=== PATIENT | female | born 1940 | race Caucasian/White ===

== ENCOUNTER 2018-05-21 11:42 | Inpatient (IN) | payer MEDICARE, OTHER ==
[2018-05-21 12:27] LABS: ADD MAN DIFF? NO
[2018-05-21 12:36] LABS: HEMATOCRIT 36.5 % (37.0-47.0); LYMPHOCYTES # 1.1 10^3/ul (0.8-2.9); LYMPHOCYTES % 28.8 % (15.0-51.0); MEAN CORPUSCULAR HEMOGLOBIN 27.7 pg (29.0-33.0); MEAN CORPUSCULAR HGB CONC 32.9 g/dl (32.0-37.0); MEAN CORPUSCULAR VOLUME 84.3 fl (82.0-101.0); MEAN PLATELET VOLUME 10.8 fl (7.4-10.4); MONOCYTE # 0.4 10^3/ul (0.3-0.9); MONOCYTES % 9.2 % (0.0-11.0); NEUTROPHIL # 2.3 10^3/ul (1.6-7.5); NEUTROPHILS % 61.7 % (39.0-77.0); PLATELET COUNT 329 10^3/UL (140-415); RED BLOOD COUNT 4.33 10^6/ul (4.20-5.40); RED CELL DISTRIBUTION WIDTH 12.8 % (11.5-14.5)
[2018-05-21 12:36] LABS: WHITE BLOOD COUNT 3.8 10^3/ul (4.8-10.8)
[2018-05-21] MEDS: SOD CHLORIDE 0.9% 1,000 ML IV ×3 (12:48→17:35)
[2018-05-21] MEDS: CEFTRIAXONE 1 GM/50 ML (PMX) 50 ML IVPB (12:48)
[2018-05-21 12:49] LABS: POSITIVE DIFF @See below
[2018-05-21] MEDS: ALBUTEROL 0.083% (NEB) 2.5 MG/3 ML AMP INH (12:51)
[2018-05-21 12:58] LABS: ALANINE AMINOTRANSFERASE 23 IU/L (13-69); ALBUMIN 4.1 g/dl (3.3-4.9); ALKALINE PHOSPHATASE 52 IU/L (42-121); ANION GAP 21 (5-13); ASPARTATE AMINO TRANSFERASE 44 IU/L (15-46); BLOOD UREA NITROGEN 74 mg/dl (7-20); CALCIUM 10.1 mg/dl (8.4-10.2); CARBON DIOXIDE 23 mmol/L (21-31); CHLORIDE 96 mmol/L (97-110); CREATININE 3.53 mg/dl (0.44-1.00); GLUCOSE 232 mg/dl (70-220); SODIUM 140 mmol/L (135-144); TOTAL PROTEIN 7.5 g/dl (6.1-8.1)
[2018-05-21] MEDS: AZITHROMYCIN 500MG/NS (PMX) 250 ML IV (13:13)
[2018-05-21 13:50] LABS: ANISOCYTOSIS 2+ (0-0); BAND NEUTROPHILS #M 0.3 10^3/ul (0.0-0.6); BAND NEUTROPHILS % (M) 9 % (0-4); BURR CELLS 1+ (0-0); ERYTHROBLAST% (NRBC) (M) 1 % (0-0); GIANT THROMBO% (M) 1 % (0-0); LYMPHOCYTES #M 0.6 10^3/ul (0.8-2.9); LYMPHOCYTES % (M) 18 % (15-51); MICROCYTOSIS 2+ (0-0); MONOCYTE #M 0.5 10^3/ul (0.3-0.9); MONOCYTES % (M) 14 % (0-11); PLATELET ESTIMATE NORMAL; POIKILOCYTOSIS 1+ (0-0); POLYCHROMASIA 3+ (0-0); REACTIVE LYMPHOCYTES% (M) 1 % (0-0); SEG NEUT #M 2.2 10^3/ul (1.6-7.5); SEGMENTED NEUTROPHILS (M) % 58 % (39-77); SMUDGE%M 9 % (0-0); TEAR DROP CELLS 1+ (0-0)
[2018-05-21] MEDS: ONDANSETRON 4 MG INJ IV ×2 (14:17→21:39)
[2018-05-21] MEDS: HYDROmorphONE 1 MG/ML SYG IV (14:17)
[2018-05-21] MEDS ORDERED: ONDANSETRON 4 MG INJ IV (15:00)
[2018-05-21] MEDS ORDERED: ACETAMINOPHEN 325 MG TAB PO ×2 (15:00→17:30)
[2018-05-21] MEDS ORDERED: DOCUSATE SODIUM 100 MG CAP PO (17:30)
[2018-05-21] MEDS ORDERED: NACL 0.9% 3 ML SYG IV (17:30)
[2018-05-21] MEDS ORDERED: GLUCOSE GEL 15 GRAM TUBE BUCCAL (18:00)
[2018-05-21] MEDS ORDERED: GLUCAGON 1 MG INJ IM (18:00)
[2018-05-21] MEDS ORDERED: DEXTROSE 50% 50 ML SYRINGE IV ×2 (18:00)
[2018-05-21] MEDS ORDERED: GLUCOSE GEL 15 GRAM TUBE PO ×2 (18:00)
[2018-05-21] MEDS: NS + KCL 20 MEQ 1,000 ML IV (18:58)
[2018-05-21] MEDS: SENNA TAB PO (20:57)
[2018-05-21] MEDS: DOCUSATE SODIUM 100 MG CAP PO (20:57)
[2018-05-21] MEDS ORDERED: INSULIN ASPART [NOVOLOG] 3 ML PEN SC (21:00)
[2018-05-21] MEDS ORDERED: CALCIUM CARBONATE 500 MG CHEW TAB PO (21:30)
[2018-05-21] MEDS: PANTOPRAZOLE (EC) 40 MG TAB PO (21:38)
[2018-05-21] MEDS: morphine 4 MG/ML VIAL IV (23:49)
[2018-05-22] MEDS: hydrALAzine 20 MG INJ IV ×3 (01:22→14:52)
[2018-05-22] MEDS: ACCU-CHEK XX (01:51)
[2018-05-22] MEDS ORDERED: ACCU-CHEK XX (02:00)
[2018-05-22] MEDS: NS + KCL 20 MEQ 1,000 ML IV ×3 (05:00→16:11)
[2018-05-22 05:07] LABS: ADD MAN DIFF? NO
[2018-05-22 05:10] LABS: WHITE BLOOD COUNT 4.7 10^3/ul (4.8-10.8)
[2018-05-22 05:10] LABS: ADD UMIC NO; BASOPHILS % 0.2 % (0.0-2.0); HEMOGLOBIN 10.8 g/dl (12.0-16.0); LYMPHOCYTES # 0.8 10^3/ul (0.8-2.9); LYMPHOCYTES % 17.6 % (15.0-51.0); MEAN CORPUSCULAR HEMOGLOBIN 27.9 pg (29.0-33.0); MEAN CORPUSCULAR HGB CONC 32.7 g/dl (32.0-37.0); MEAN CORPUSCULAR VOLUME 85.3 fl (82.0-101.0); MEAN PLATELET VOLUME 10.4 fl (7.4-10.4); MONOCYTE # 0.4 10^3/ul (0.3-0.9); MONOCYTES % 7.7 % (0.0-11.0); NEUTROPHIL # 3.5 10^3/ul (1.6-7.5); NEUTROPHILS % 74.3 % (39.0-77.0); PLATELET COUNT 304 10^3/UL (140-415); RED BLOOD COUNT 3.87 10^6/ul (4.20-5.40); RED CELL DISTRIBUTION WIDTH 12.8 % (11.5-14.5); UR ASCORBIC ACID 20 mg/dL (NEGATIVE); UR BILIRUBIN (Dip) NEGATIVE (NEGATIVE); UR BLOOD (Dip) NEGATIVE (NEGATIVE); UR CLARITY CLEAR (CLEAR); UR COLOR YELLOW (YELLOW); UR GLUCOSE (Dip) 1+ mg/dL (NEGATIVE); UR KETONES (Dip) NEGATIVE (NEGATIVE); UR LEUKOCYTE ESTERASE (Dip) NEGATIVE Leu/ul (NEGATIVE); UR NITRITE (Dip) NEGATIVE (NEGATIVE); UR SPECIFIC GRAVITY (Dip) 1.014 (1.003-1.030); UR TOTAL PROTEIN (Dip) NEGATIVE (NEGATIVE); UR UROBILINOGEN (Dip) NEGATIVE (NEGATIVE)
[2018-05-22 05:20] LABS: HEMOGLOBIN A1C 7.2 % (0-5.9)
[2018-05-22 05:46] LABS: ANION GAP 17 (5-13); BLOOD UREA NITROGEN 56 mg/dl (7-20); CALCIUM 9.5 mg/dl (8.4-10.2); CARBON DIOXIDE 26 mmol/L (21-31); CHLORIDE 100 mmol/L (97-110); CREATININE 1.86 mg/dl (0.44-1.00); GLUCOSE 219 mg/dl (70-220); MAGNESIUM 2.1 mg/dl (1.7-2.5); PHOSPHORUS 5.5 mg/dl (2.5-4.9); POTASSIUM 4.8 mmol/L (3.5-5.1); SODIUM 143 mmol/L (135-144)
[2018-05-22 05:50] LABS: POSITIVE DIFF @See below
[2018-05-22] MEDS: PANTOPRAZOLE (EC) 40 MG TAB PO (06:31)
[2018-05-22] MEDS: INSULIN ASPART [NOVOLOG] 3 ML PEN SC (08:02)
[2018-05-22] MEDS: morphine 4 MG/ML VIAL IV (08:03)
[2018-05-22] MEDS: SENNA TAB PO ×3 (08:03→20:39)
[2018-05-22] MEDS: DOCUSATE SODIUM 100 MG CAP PO ×3 (08:03→20:38)
[2018-05-22] MEDS: ISOSORBIDE MONONITRATE(SR)60 MG TAB PO (12:51)
[2018-05-22] MEDS: AMLODIPINE 10 MG TAB PO (12:52)
[2018-05-22] MEDS: SERTRALINE 50 MG TAB PO (12:52)
[2018-05-22] MEDS: METOPROLOL (XL) 50 MG TAB PO (12:53)
[2018-05-22] MEDS ORDERED: INSULIN ASPART [NOVOLOG] 3 ML PEN SC (13:00)
[2018-05-22] MEDS: Insulin NOVOLOG SS MILD Algorithm (NPO/TPN/ENTERAL FEEDS) SC ×3 (13:00→20:49)
[2018-05-22] MEDS: BISACODYL (EC) 5 MG TAB PO (13:37)
[2018-05-23] MEDS: NS + KCL 20 MEQ 1,000 ML IV ×4 (00:30→12:55)
[2018-05-23] MEDS: ACCU-CHEK XX (01:17)
[2018-05-23] MEDS: Insulin NOVOLOG SS MILD Algorithm (NPO/TPN/ENTERAL FEEDS) SC ×3 (01:17→08:10)
[2018-05-23] MEDS: hydrALAzine 20 MG INJ IV ×3 (01:54→20:04)
[2018-05-23] MEDS: PANTOPRAZOLE (EC) 40 MG TAB PO (05:28)
[2018-05-23 05:43] LABS: WHITE BLOOD COUNT 6.4 10^3/ul (4.8-10.8)
[2018-05-23 05:43] LABS: HEMATOCRIT 31.9 % (37.0-47.0); HEMOGLOBIN 10.5 g/dl (12.0-16.0); MEAN CORPUSCULAR HEMOGLOBIN 28.2 pg (29.0-33.0); MEAN CORPUSCULAR HGB CONC 32.9 g/dl (32.0-37.0); MEAN CORPUSCULAR VOLUME 85.8 fl (82.0-101.0); MEAN PLATELET VOLUME 10.6 fl (7.4-10.4); PLATELET COUNT 399 10^3/UL (140-415); RED BLOOD COUNT 3.72 10^6/ul (4.20-5.40); RED CELL DISTRIBUTION WIDTH 13.1 % (11.5-14.5)
[2018-05-23 06:03] LABS: ANION GAP 16 (5-13); BLOOD UREA NITROGEN 34 mg/dl (7-20); CARBON DIOXIDE 23 mmol/L (21-31); CHLORIDE 105 mmol/L (97-110); CREATININE 1.04 mg/dl (0.44-1.00); GLUCOSE 189 mg/dl (70-220); MAGNESIUM 1.8 mg/dl (1.7-2.5); PHOSPHORUS 3.3 mg/dl (2.5-4.9); POTASSIUM 4.8 mmol/L (3.5-5.1); SODIUM 144 mmol/L (135-144)
[2018-05-23 06:12] LABS: POSITIVE DIFF @See below
[2018-05-23 06:13] LABS: ADD MAN DIFF? YES
[2018-05-23 07:40] LABS: ANISOCYTOSIS 1+ (0-0); BAND NEUTROPHILS % (M) 1 % (0-4); GIANT THROMBO% (M) 2 % (0-0); LYMPHOCYTES #M 0.5 10^3/ul (0.8-2.9); LYMPHOCYTES % (M) 8 % (15-51); MICROCYTOSIS 1+ (0-0); MONOCYTE #M 0.6 10^3/ul (0.3-0.9); MONOCYTES % (M) 10 % (0-11); PLATELET ESTIMATE NORMAL; POLYCHROMASIA 1+ (0-0); REACTIVE LYMPHOCYTES #M 0.4 10^3/ul (0.0-0.0); REACTIVE LYMPHOCYTES% (M) 7 % (0-0); SEG NEUT #M 4.7 10^3/ul (1.6-7.5); SEGMENTED NEUTROPHILS (M) % 74 % (39-77); SMUDGE%M 4 % (0-0)
[2018-05-23] MEDS: SENNA TAB PO ×2 (08:06→20:01)
[2018-05-23] MEDS: DOCUSATE SODIUM 100 MG CAP PO ×2 (08:06→20:01)
[2018-05-23] MEDS: ISOSORBIDE MONONITRATE(SR)60 MG TAB PO (08:06)
[2018-05-23] MEDS: LOSARTAN 50 MG TAB PO (08:07)
[2018-05-23] MEDS: HYDROCHLOROTHIAZIDE 25 MG TAB PO (08:07)
[2018-05-23] MEDS: SERTRALINE 50 MG TAB PO (08:07)
[2018-05-23] MEDS: AMLODIPINE 10 MG TAB PO (08:07)
[2018-05-23] MEDS: METOPROLOL (XL) 50 MG TAB PO (08:08)
[2018-05-23] MEDS ORDERED: BISACODYL (EC) 5 MG TAB PO (12:00)
[2018-05-23] MEDS: INSULIN ASPART [NOVOLOG] 3 ML PEN SC ×3 (12:38→20:27)
[2018-05-23] MEDS: POLYETHYLENE GLYCOL 17 GM PACKET PO (12:39)
[2018-05-23] MEDS: MAGNESIUM HYDROXIDE 30ML CUP PO (12:39)
[2018-05-23] MEDS: BISACODYL (EC) 5 MG TAB PO (12:40)
[2018-05-23] MEDS: LINZESS PO (16:05)
[2018-05-23] MEDS ORDERED: Insulin NOVOLOG SS MILD Algorithm (SS with meals and bedtime) SC (17:30)
[2018-05-23] MEDS ORDERED: INSULIN ASPART [NOVOLOG] 3 ML PEN SC (17:30)
[2018-05-23] MEDS: ONDANSETRON 4 MG INJ IV (17:40)
[2018-05-23] MEDS: HYDROCODONE/APAP (5/325) TAB PO (20:02)
[2018-05-23] MEDS: morphine 4 MG/ML VIAL IV (20:04)
[2018-05-23] MEDS ORDERED: morphine LIQ (10 MG/5 ML) CUP PO (21:00)
[2018-05-24] MEDS: NS + KCL 20 MEQ 1,000 ML IV ×5 (00:35→20:37)
[2018-05-24] MEDS: HYDROCODONE/APAP (5/325) TAB PO (00:36)
[2018-05-24] MEDS ORDERED: morphine 4 MG/ML VIAL (01:36)
[2018-05-24] MEDS: hydrALAzine 20 MG INJ IV ×2 (01:47→08:47)
[2018-05-24] MEDS: ONDANSETRON 4 MG INJ IV (01:47)
[2018-05-24] MEDS: morphine 4 MG/ML VIAL IV ×2 (01:48→09:56)
[2018-05-24] MEDS: ACCU-CHEK XX (02:00)
[2018-05-24 05:45] LABS: ADD MAN DIFF? NO
[2018-05-24 05:57] LABS: WHITE BLOOD COUNT 8.1 10^3/ul (4.8-10.8)
[2018-05-24 05:58] LABS: BASOPHILS % 0.1 % (0.0-2.0); HEMATOCRIT 34.2 % (37.0-47.0); HEMOGLOBIN 11.1 g/dl (12.0-16.0); LYMPHOCYTES # 1.6 10^3/ul (0.8-2.9); LYMPHOCYTES % 19.5 % (15.0-51.0); MEAN CORPUSCULAR HGB CONC 32.5 g/dl (32.0-37.0); MEAN CORPUSCULAR VOLUME 86.1 fl (82.0-101.0); MEAN PLATELET VOLUME 9.8 fl (7.4-10.4); MONOCYTE # 0.8 10^3/ul (0.3-0.9); MONOCYTES % 9.3 % (0.0-11.0); NEUTROPHIL # 5.7 10^3/ul (1.6-7.5); NEUTROPHILS % 70.4 % (39.0-77.0); PLATELET COUNT 522 10^3/UL (140-415); RED BLOOD COUNT 3.97 10^6/ul (4.20-5.40)
[2018-05-24] MEDS: PANTOPRAZOLE 40 MG INJ IV (06:00)
[2018-05-24 06:17] LABS: BLOOD UREA NITROGEN 32 mg/dl (7-20); CALCIUM 10.2 mg/dl (8.4-10.2); CARBON DIOXIDE 25 mmol/L (21-31); CREATININE 0.98 mg/dl (0.44-1.00); GLUCOSE 202 mg/dl (70-220); MAGNESIUM 1.8 mg/dl (1.7-2.5); POTASSIUM 4.7 mmol/L (3.5-5.1); SODIUM 142 mmol/L (135-144)
[2018-05-24 06:31] LABS: ANION GAP 15 (5-13); CHLORIDE 102 mmol/L (97-110)
[2018-05-24] MEDS: INSULIN ASPART [NOVOLOG] 3 ML PEN SC ×4 (08:45→20:42)
[2018-05-24] MEDS: DOCUSATE SODIUM 100 MG CAP PO ×2 (08:45→20:42)
[2018-05-24] MEDS: LINZESS PO (08:45)
[2018-05-24] MEDS: HYDROCHLOROTHIAZIDE 25 MG TAB PO (08:45)
[2018-05-24] MEDS: LOSARTAN 50 MG TAB PO (08:45)
[2018-05-24] MEDS: SENNA TAB PO ×2 (08:46→20:42)
[2018-05-24] MEDS: AMLODIPINE 10 MG TAB PO (08:46)
[2018-05-24] MEDS: POLYETHYLENE GLYCOL 17 GM PACKET PO (08:46)
[2018-05-24] MEDS: METOPROLOL (XL) 50 MG TAB PO (08:46)
[2018-05-24] MEDS: ISOSORBIDE MONONITRATE(SR)60 MG TAB PO (08:46)
[2018-05-24] MEDS: MAGNESIUM HYDROXIDE 30ML CUP PO (08:46)
[2018-05-24] MEDS: SERTRALINE 50 MG TAB PO (08:46)
[2018-05-25] MEDS: INSULIN ASPART [NOVOLOG] 3 ML PEN SC ×6 (01:00→21:00)
[2018-05-25] MEDS: ACCU-CHEK XX (01:23)
[2018-05-25] MEDS: PANTOPRAZOLE 40 MG INJ IV (05:05)
[2018-05-25 05:45] LABS: ADD MAN DIFF? NO
[2018-05-25 06:01] LABS: EOSINOPHILS % 0.1 % (0.0-7.0); HEMATOCRIT 36.5 % (37.0-47.0); HEMOGLOBIN 11.6 g/dl (12.0-16.0); LYMPHOCYTES # 1.5 10^3/ul (0.8-2.9); LYMPHOCYTES % 18.6 % (15.0-51.0); MEAN CORPUSCULAR HEMOGLOBIN 27.7 pg (29.0-33.0); MEAN CORPUSCULAR HGB CONC 31.8 g/dl (32.0-37.0); MEAN CORPUSCULAR VOLUME 87.1 fl (82.0-101.0); MEAN PLATELET VOLUME 9.9 fl (7.4-10.4); MONOCYTE # 0.8 10^3/ul (0.3-0.9); MONOCYTES % 10.5 % (0.0-11.0); NEUTROPHIL # 5.6 10^3/ul (1.6-7.5); NEUTROPHILS % 69.8 % (39.0-77.0); PLATELET COUNT 484 10^3/UL (140-415); RED BLOOD COUNT 4.19 10^6/ul (4.20-5.40); RED CELL DISTRIBUTION WIDTH 13.2 % (11.5-14.5)
[2018-05-25] MEDS: NS + KCL 20 MEQ 1,000 ML IV ×2 (06:21→17:29)
[2018-05-25 06:36] LABS: ANION GAP 15 (5-13); BLOOD UREA NITROGEN 33 mg/dl (7-20); CALCIUM 10.3 mg/dl (8.4-10.2); CARBON DIOXIDE 24 mmol/L (21-31); CHLORIDE 106 mmol/L (97-110); CREATININE 1.03 mg/dl (0.44-1.00); GLUCOSE 118 mg/dl (70-220); POTASSIUM 4.4 mmol/L (3.5-5.1); SODIUM 145 mmol/L (135-144)
[2018-05-25] MEDS: AMLODIPINE 10 MG TAB PO (09:00)
[2018-05-25] MEDS: LINZESS PO (09:00)
[2018-05-25] MEDS: LOSARTAN 50 MG TAB PO (09:00)
[2018-05-25] MEDS: POLYETHYLENE GLYCOL 17 GM PACKET PO (09:00)
[2018-05-25] MEDS: SERTRALINE 50 MG TAB PO (09:00)
[2018-05-25] MEDS: ISOSORBIDE MONONITRATE(SR)60 MG TAB PO (09:00)
[2018-05-25] MEDS: DOCUSATE SODIUM 100 MG CAP PO ×2 (09:00→21:00)
[2018-05-25] MEDS: MAGNESIUM HYDROXIDE 30ML CUP PO (09:00)
[2018-05-25] MEDS: HYDROCHLOROTHIAZIDE 25 MG TAB PO (09:00)
[2018-05-25] MEDS: SENNA TAB PO ×2 (09:00→21:00)
[2018-05-25] MEDS: METOPROLOL (XL) 50 MG TAB PO (09:00)
[2018-05-25] MEDS ORDERED: DIATR MEGLU/DIATRIZOATE SODIUM 120 ML BTL (14:39)
[2018-05-25] MEDS: hydrALAzine 20 MG INJ IV (18:49)
[2018-05-26] MEDS: INSULIN ASPART [NOVOLOG] 3 ML PEN SC ×6 (01:00→21:00)
[2018-05-26] MEDS: ACCU-CHEK XX (02:00)
[2018-05-26] MEDS: NS + KCL 20 MEQ 1,000 ML IV ×4 (02:51→20:08)
[2018-05-26 05:26] LABS: ADD MAN DIFF? NO
[2018-05-26 05:35] LABS: WHITE BLOOD COUNT 9.9 10^3/ul (4.8-10.8)
[2018-05-26 05:35] LABS: BASOPHILS % 0.1 % (0.0-2.0); HEMATOCRIT 36.2 % (37.0-47.0); HEMOGLOBIN 11.7 g/dl (12.0-16.0); LYMPHOCYTES # 1.1 10^3/ul (0.8-2.9); LYMPHOCYTES % 11.5 % (15.0-51.0); MEAN CORPUSCULAR HEMOGLOBIN 27.9 pg (29.0-33.0); MEAN CORPUSCULAR HGB CONC 32.3 g/dl (32.0-37.0); MEAN CORPUSCULAR VOLUME 86.4 fl (82.0-101.0); MEAN PLATELET VOLUME 9.6 fl (7.4-10.4); MONOCYTE # 0.7 10^3/ul (0.3-0.9); MONOCYTES % 7.4 % (0.0-11.0); NEUTROPHILS % 80.4 % (39.0-77.0); PLATELET COUNT 400 10^3/UL (140-415); RED BLOOD COUNT 4.19 10^6/ul (4.20-5.40); RED CELL DISTRIBUTION WIDTH 13.1 % (11.5-14.5)
[2018-05-26] MEDS: PANTOPRAZOLE 40 MG INJ IV (05:42)
[2018-05-26 05:52] LABS: LACTIC ACID 1.1 mmol/L (0.5-2.0)
[2018-05-26 06:06] LABS: ANION GAP 13 (5-13); BLOOD UREA NITROGEN 31 mg/dl (7-20); CALCIUM 10.4 mg/dl (8.4-10.2); CARBON DIOXIDE 22 mmol/L (21-31); CHLORIDE 112 mmol/L (97-110); CREATININE 0.88 mg/dl (0.44-1.00); GLUCOSE 136 mg/dl (70-220); POTASSIUM 4.5 mmol/L (3.5-5.1); SODIUM 147 mmol/L (135-144)
[2018-05-26] MEDS: hydrALAzine 20 MG INJ IV ×3 (08:19→20:08)
[2018-05-26] MEDS: HYDROCHLOROTHIAZIDE 25 MG TAB PO (09:00)
[2018-05-26] MEDS: SENNA TAB PO ×2 (09:00→19:54)
[2018-05-26] MEDS: METOPROLOL (XL) 50 MG TAB PO (09:00)
[2018-05-26] MEDS: SERTRALINE 50 MG TAB PO (09:00)
[2018-05-26] MEDS: LINZESS PO (09:00)
[2018-05-26] MEDS: POLYETHYLENE GLYCOL 17 GM PACKET PO (09:00)
[2018-05-26] MEDS: AMLODIPINE 10 MG TAB PO (09:00)
[2018-05-26] MEDS: LOSARTAN 50 MG TAB PO (09:00)
[2018-05-26] MEDS: DOCUSATE SODIUM 100 MG CAP PO ×2 (09:00→19:54)
[2018-05-26] MEDS: ISOSORBIDE MONONITRATE(SR)60 MG TAB PO (09:00)
[2018-05-26] MEDS: MAGNESIUM HYDROXIDE 30ML CUP PO (09:00)
[2018-05-26] MEDS: METOPROLOL 25 MG TAB PO ×2 (12:22→21:17)
[2018-05-27] MEDS: INSULIN ASPART [NOVOLOG] 3 ML PEN SC ×4 (01:00→11:50)
[2018-05-27] MEDS: NS + KCL 20 MEQ 1,000 ML IV ×3 (01:01→09:01)
[2018-05-27] MEDS: ACCU-CHEK XX (01:22)
[2018-05-27] MEDS: hydrALAzine 20 MG INJ IV (02:00)
[2018-05-27 05:32] LABS: ANION GAP 7 (5-13); BLOOD UREA NITROGEN 20 mg/dl (7-20); CALCIUM 8.7 mg/dl (8.4-10.2); CARBON DIOXIDE 22 mmol/L (21-31); CHLORIDE 119 mmol/L (97-110); CREATININE 0.83 mg/dl (0.44-1.00); GLUCOSE 118 mg/dl (70-220); SODIUM 148 mmol/L (135-144)
[2018-05-27] MEDS: PANTOPRAZOLE 40 MG INJ IV (05:53)
[2018-05-27] MEDS: DOCUSATE SODIUM 100 MG CAP PO (07:53)
[2018-05-27] MEDS: LOSARTAN 50 MG TAB PO ×2 (07:53→14:03)
[2018-05-27] MEDS: LINZESS PO (07:53)
[2018-05-27] MEDS: HYDROCHLOROTHIAZIDE 25 MG TAB PO ×2 (07:53→14:04)
[2018-05-27] MEDS: ISOSORBIDE MONONITRATE(SR)60 MG TAB PO ×2 (07:53→14:05)
[2018-05-27] MEDS: MAGNESIUM HYDROXIDE 30ML CUP PO (07:54)
[2018-05-27] MEDS: AMLODIPINE 10 MG TAB PO ×2 (07:54→14:04)
[2018-05-27] MEDS: SERTRALINE 50 MG TAB PO ×2 (07:54→14:03)
[2018-05-27] MEDS: POLYETHYLENE GLYCOL 17 GM PACKET PO (07:54)
[2018-05-27] MEDS: SENNA TAB PO (07:54)
[2018-05-27] MEDS: METOPROLOL 25 MG TAB PO (08:36)
[2018-05-27] MEDS: FUROSEMIDE 40 MG INJ IV (14:02)
[2018-05-27] MEDS ORDERED: NS + KCL 20 MEQ 1,000 ML IV (17:01)
== END 2018-05-27 18:00 | disposition home health service (06) | DRG 389 ==
LOC: E/R 11:42 → 2NE 14:55
DX: K56.609 Unspecified intestinal obstruction, unspecified as to partial versus complete obstruction (principal); N17.9 Acute kidney failure, unspecified; E86.0 Dehydration; J06.9 Acute upper respiratory infection, unspecified; R10.11 Right upper quadrant pain; K59.00 Constipation, unspecified; I10 Essential (primary) hypertension; M79.602 Pain in left arm; E11.9 Type 2 diabetes mellitus without complications; D50.9 Iron deficiency anemia, unspecified
CPT/HCPCS: 36415; 71045; 74176; 74250; 76705; 80048; 80053; 81003; 82962; 83036; 83605; 83735; 84100; 85025; 87040; 87400; 93971; 94664; 96365; 96366; 96368; 96375; 99285-25